=== PATIENT | male | born 1955 | race Caucasian/White ===

== ENCOUNTER 2022-08-03 08:14 | Outpatient (CLI) | payer MEDICARE, BC ==
[2022-08-03] MEDS ORDERED: Iopamidol 370 76% 100 ML VIAL ONE (13:54)
== END 2022-08-03 08:15 | disposition home or self-care (01) ==
LOC: CSHCT 08:14
PROVIDERS: ATTEND Internal Medicine Cardiovascular Disease
DX: R06.02 Shortness of breath (principal); I51.7 Cardiomegaly; Z95.1 Presence of aortocoronary bypass graft; I25.10 Atherosclerotic heart disease of native coronary artery without angina pectoris
CPT/HCPCS: 71275; 82565; Q9967

== ENCOUNTER 2022-09-16 18:39 | Emergency (ER) | payer OTHER, MEDICARE, BC ==
[2022-09-16] MEDS ORDERED: Bacitracin 1 PK ONE (19:48)
[2022-09-16] MEDS ORDERED: Boostrix 0.5 ML (Tdap) VIAL (>/=7 yrs of age) ONE (19:49)
== END 2022-09-16 20:41 | disposition home or self-care (01) ==
LOC: CSHERS 18:39
DX: S01.111A Laceration without foreign body of right eyelid and periocular area, initial encounter (principal); S50.312A Abrasion of left elbow, initial encounter; M25.531 Pain in right wrist; Z23 Encounter for immunization; I10 Essential (primary) hypertension; W01.10XA Fall on same level from slipping, tripping and stumbling with subsequent striking against unspecified object, initial encounter
CPT/HCPCS: 29125; 90471; 90715

== ENCOUNTER 2022-09-22 14:46 | Emergency (ER) | payer OTHER, MEDICARE, BC ==
[2022-09-22] MEDS ORDERED: Morphine 4 MG/ML VIAL ONE (16:15)
[2022-09-22] MEDS ORDERED: Ondansetron PF 4 MG/2 ML Vial ONE (16:16)
[2022-09-22 16:54] LABS: #Eosinphils 0.1 10x3/uL (0.0-0.5); #Monocytes 0.6 10x3/uL (0.0-1.1); #Neutrophils 5.1 10x3/uL (1.5-8.4); %Basophils 0.5 % (0.0-2.0); %Eosinophils 2.1 % (0.0-6.0); %Lymphocytes 10.6 % (18.0-47.0); %Monocytes 8.8 % (0.0-10.0); %Neutrophils 77.7 % (40.0-75.0); Hemoglobin 13.6 g/dL (13.5-17.5); Mean Corpuscular Volume 91.1 fl (81.2-95.1); Mean Platelet Volume 10.2 fl (7.4-10.4); Platelet Count 143 10x3/uL (150-450); RBC Distribution Width 13.7 % (11.5-14.5); Red Blood Cell (RBC) Count 4.39 10x6/uL (4.32-5.72); White Blood Cell (WBC) Count 6.6 10x3/uL (3.5-10.5)
[2022-09-22 17:01] LABS: ALT (SGPT) 21 U/L (8-55); AST (SGOT) 33 U/L (5-34); Alkaline Phosphatase 62 U/L (40-110); Anion Gap 16 mmol/L (10-20); BUN (Urea Nitrogen) 15 mg/dL (8.4-25.7); Bilirubin, Total 0.6 mg/dL (0.2-1.2); CK (CPK) 135 U/L (30-200); Calc. Creatinine Clearance 0 mL/min (70-130); Calcium 9.3 mg/dL (7.8-10.44); Carbon Dioxide 24 mmol/L (23-31); Chloride 103 mmol/L (98-107); Estimated GFR 96; Globulin 2.8 g/dL (2.4-3.5); Glucose 96 mg/dL (80-115); Protein, Total 6.8 g/dL (5.8-8.1); Sodium 139 mmol/L (136-145)
== END 2022-09-22 17:55 | disposition left against medical advice (07) ==
LOC: CSHERS 14:46
DX: S72.111A Displaced fracture of greater trochanter of right femur, initial encounter for closed fracture (principal); I10 Essential (primary) hypertension; W01.10XA Fall on same level from slipping, tripping and stumbling with subsequent striking against unspecified object, initial encounter
CPT/HCPCS: 71045; 72170; 80053; 82550; 85025; 93005; 96374; 96375; J2270; J2405

== ENCOUNTER 2023-05-15 16:50 | Emergency (ER) | payer MEDICARE, BC | END 2023-05-15 18:37 | disposition home or self-care (01) | LOC: CSHERS 16:50 | DX: N45.3 Epididymo-orchitis (principal); I10 Essential (primary) hypertension | CPT/HCPCS: 76870; 93976 ==